=== PATIENT | female | born 1960 | race African-American/Black ===

== ENCOUNTER 2017-03-24 10:52 | Emergency (ER) | payer MEDICAID ==
[~2017-03-24] VITALS: Ht 152.4 cm; Wt 76.0 kg
[~2017-03-24 10:52] MED LIST: ASPI-1035 PO; BENA20TA3 PO; METF500T4 PO; TRIA1CAP6 PO
[2017-03-24 11:20] VITALS: BP 151/97
[2017-03-24] MEDS ORDERED: IBUPROFEN 600MG TABLET PO ONE (13:00)
== END 2017-03-24 15:16 | disposition home or self-care (01) ==
LOC: ER 13:05
DX: S40.012A Contusion of left shoulder, initial encounter (principal); S60.222A Contusion of left hand, initial encounter; S80.02XA Contusion of left knee, initial encounter; E11.9 Type 2 diabetes mellitus without complications; I10 Essential (primary) hypertension; V49.9XXA Car occupant (driver) (passenger) injured in unspecified traffic accident, initial encounter; Y93.89 Activity, other specified; Y92.89 Other specified places as the place of occurrence of the external cause; Y99.8 Other external cause status
CPT/HCPCS: 73030; 73130; 73562; 99284

== ENCOUNTER 2018-08-21 06:37 | Emergency (ER) | payer MEDICAID ==
[~2018-08-21] VITALS: Ht 157.5 cm; Wt 75.0 kg
[~2018-08-21 06:37] MED LIST changes: -ASPI-1035 PO; +ASPI-1159 PO; +BENA20TA10 PO; -BENA20TA3 PO; -METF500T4 PO; +METF500T6 PO
[2018-08-21] MEDS ORDERED: TRAMADOL 50MG TABLET PO ONE (08:00)
[2018-08-21 08:28] LABS: CLARITY URINE CLOUDY (CLEAR); COLOR URINE YELLOW (YELLOW); KETONES URINE NEGATIVE (NEGATIVE); LEUKOCYTE ESTERASE URINE 2+ (NEGATIVE); NITRITE URINE NEGATIVE (NEGATIVE); OCCULT BLOOD URINE NEGATIVE (NEGATIVE); PROTEIN URINE NEGATIVE (NEGATIVE); SPECIFIC GRAVITY URINE 1.028 (1.005-1.030); UROBILINOGEN URINE 0.2 E.U./dL (0.2-1.0)
[2018-08-21 08:52] LABS: BASOPHILS % 0.9 % (0.0-2.0); EOSINOPHILS % 1.1 % (0.0-5.0); HEMATOCRIT. 37.2 % (36.0-48.0); HEMOGLOBIN. 12.3 g/dL (12.0-16.0); LYMPHOCYTES % 35.8 % (20.0-50.0); MEAN CORPUSCULAR HEMOGLOBIN 29.6 pg (28.0-32.0); MEAN CORPUSCULAR VOLUME 89.6 fL (81.0-99.0); MEAN PLATELET VOLUME 8.3 fl (7.4-10.4); MONOCYTES % 8.7 % (2.0-8.0); NEUTROPHILS % 53.5 % (40.0-76.0); PLATELET 288 x1000/uL (130-400); RED BLOOD CELL COUNT 4.16 mill/uL (4.2-5.4); RED CELL DISTRIBUTION WIDTH 13.5 % (11.6-14.6)
[2018-08-21 08:59] LABS: CHLORIDE 105 mEq/L (98-107)
[2018-08-21] MEDS ORDERED: AMOXICILLIN/POTASSIUM CLAVULANATE 875/125MG TAB PO ONE (10:45)
[2018-08-21 11:19] VITALS: BP 162/86
== END 2018-08-21 11:28 | disposition home or self-care (01) ==
LOC: ER 06:37
DX: N12 Tubulo-interstitial nephritis, not specified as acute or chronic (principal); E11.9 Type 2 diabetes mellitus without complications; I10 Essential (primary) hypertension; Z98.890 Other specified postprocedural states; Z79.899 Other long term (current) drug therapy
CPT/HCPCS: 36415; 80048; 81003; 81025; 83690; 85025; 87086; 99284

== ENCOUNTER 2019-11-12 07:53 | Emergency (ER) | payer MEDICAID ==
[~2019-11-12] VITALS: Ht 160 cm; Wt 81.0 kg
[~2019-11-12 07:53] MED LIST changes: -ASPI-1159 PO; +ASPI-1393 PO; +METF-414 PO; -METF500T6 PO
[2019-11-12] MEDS ORDERED: ONDANSETRON HCL 4MG/2ML INJ IV STA (08:52)
[2019-11-12] MEDS ORDERED: SODIUM CHLORIDE 0.9% 1,000 ML IV ONE (08:52)
[2019-11-12] MEDS ORDERED: MORPHINE SULFATE 4 MG/ML CPJ (NOT FOR IM USE) IV STA (08:52)
[2019-11-12] MEDS ORDERED: KETOROLAC 30MG/ML VIAL IV STA (08:52)
[2019-11-12 08:55] LABS: CHLORIDE 107 mEq/L (98-107)
[2019-11-12 08:56] LABS: BASOPHILS % 0.7 % (0.0-2.0); EOSINOPHILS % 0.6 % (0.0-5.0); HEMATOCRIT. 38.9 % (36.0-48.0); HEMOGLOBIN. 12.9 g/dL (12.0-16.0); MEAN CORPUSCULAR HEMOGLOBIN 29.6 pg (28.0-32.0); MEAN CORPUSCULAR VOLUME 89.2 fL (81.0-99.0); MEAN PLATELET VOLUME 8.6 fl (7.4-10.4); NEUTROPHILS % 68.7 % (40.0-76.0); PLATELET 276 x1000/uL (130-400); RED BLOOD CELL COUNT 4.36 mill/uL (4.2-5.4); RED CELL DISTRIBUTION WIDTH 13.9 % (11.6-14.6)
[2019-11-12 08:57] LABS: PROTHROMBIN TIME 10.2 sec (9.6-11.0)
[2019-11-12 11:42] LABS: CLARITY URINE CLEAR (CLEAR); COLOR URINE YELLOW (YELLOW); KETONES URINE TRACE (NEGATIVE); LEUKOCYTE ESTERASE URINE 1+ (NEGATIVE); NITRITE URINE NEGATIVE (NEGATIVE); OCCULT BLOOD URINE NEGATIVE (NEGATIVE); PROTEIN URINE NEGATIVE (NEGATIVE)
[2019-11-12 12:13] VITALS: BP 151/78
== END 2019-11-12 13:15 | disposition home or self-care (01) ==
LOC: ER 08:02
DX: N39.0 Urinary tract infection, site not specified (principal); I10 Essential (primary) hypertension; E11.9 Type 2 diabetes mellitus without complications; Z79.82 Long term (current) use of aspirin; Z79.899 Other long term (current) drug therapy
CPT/HCPCS: 36415; 71045; 74176; 80053; 81003; 83690; 84484; 85025; 85610; 87086; 93005; 96374; 96375; 99284; J1885; J2270; J2405; J7030

== ENCOUNTER 2019-11-17 16:21 | Emergency (ER) | payer MEDICAID ==
[~2019-11-17] VITALS: Ht 157.5 cm; Wt 82.0 kg
[2019-11-17] MEDS ORDERED: KETOROLAC 15MG/ML VIAL IM ONE (22:15)
[2019-11-17] MEDS ORDERED: CYCLOBENZAPRINE 10MG TABLET PO ONE (22:15)
[2019-11-18 01:18] VITALS: BP 159/82
== END 2019-11-18 01:20 | disposition home or self-care (01) ==
LOC: ER 16:21
DX: S16.1XXA Strain of muscle, fascia and tendon at neck level, initial encounter (principal); M47.892 Other spondylosis, cervical region; I10 Essential (primary) hypertension; E11.9 Type 2 diabetes mellitus without complications; V43.62XA Car passenger injured in collision with other type car in traffic accident, initial encounter; Y93.89 Activity, other specified; Y92.488 Other paved roadways as the place of occurrence of the external cause; Z79.84 Long term (current) use of oral hypoglycemic drugs; Z79.82 Long term (current) use of aspirin; Z79.899 Other long term (current) drug therapy
CPT/HCPCS: 72125; 96372; 99284; J1885

== ENCOUNTER 2019-12-08 09:32 | Emergency (ER) | payer MEDICAID ==
[~2019-12-08] VITALS: Ht 157.5 cm; Wt 81.0 kg
[~2019-12-08 09:32] MED LIST changes: -ASPI-1393 PO; +ASPI-1497 PO
[2019-12-08] MEDS ORDERED: METHOCARBAMOL 500MG TABLET PO ONE (11:45)
[2019-12-08] MEDS ORDERED: KETOROLAC 60MG/2ML VIAL IM ONE (11:45)
[2019-12-08 12:15] VITALS: BP 168/83
== END 2019-12-08 12:45 | disposition home or self-care (01) ==
LOC: ER 09:32
DX: S16.1XXA Strain of muscle, fascia and tendon at neck level, initial encounter (principal); E11.9 Type 2 diabetes mellitus without complications; I10 Essential (primary) hypertension; Z98.890 Other specified postprocedural states; Z79.899 Other long term (current) drug therapy; V49.88XA Car occupant (driver) (passenger) injured in other specified transport accidents, initial encounter; Y93.89 Activity, other specified; Y92.89 Other specified places as the place of occurrence of the external cause; Y99.8 Other external cause status
CPT/HCPCS: 96372; 99283; J1885

== ENCOUNTER 2020-02-17 11:54 | Emergency (ER) | payer MEDICAID ==
[~2020-02-17] VITALS: Ht 157.5 cm; Wt 81.0 kg
[2020-02-17 12:03] VITALS: BP 107/75
[2020-02-17] MEDS ORDERED: ACETAMINOPHEN 325MG TABLET PO ONE (12:15)
== END 2020-02-17 12:19 | disposition home or self-care (01) ==
LOC: ER 11:54
DX: L02.412 Cutaneous abscess of left axilla (principal); E11.9 Type 2 diabetes mellitus without complications; I10 Essential (primary) hypertension; Z79.899 Other long term (current) drug therapy; Z79.84 Long term (current) use of oral hypoglycemic drugs
CPT/HCPCS: 99282; 99283

== ENCOUNTER 2022-11-22 08:01 | Emergency (ER) | payer MEDICAID ==
[~2022-11-22] VITALS: Ht 157.5 cm; Wt 74.0 kg
[~2022-11-22 08:01] MED LIST changes: +BENA-8 PO; -BENA20TA10 PO
[2022-11-22 08:05] VITALS: BP 130/79
[2022-11-22 09:57] LABS: CLARITY URINE CLOUDY (CLEAR); COLOR URINE YELLOW (YELLOW); KETONES URINE NEGATIVE (NEGATIVE); LEUKOCYTE ESTERASE URINE NEGATIVE (NEGATIVE); NITRITE URINE NEGATIVE (NEGATIVE); OCCULT BLOOD URINE NEGATIVE (NEGATIVE); PH URINE 7.5 (4.5-8.0); PROTEIN URINE NEGATIVE (NEGATIVE); SPECIFIC GRAVITY URINE 1.014 (1.005-1.030); UROBILINOGEN URINE 0.2 E.U./dL (0.2-1.0)
== END 2022-11-22 10:14 | disposition home or self-care (01) ==
LOC: ER 08:13
DX: N81.10 Cystocele, unspecified (principal); E11.9 Type 2 diabetes mellitus without complications; I10 Essential (primary) hypertension; Z79.899 Other long term (current) drug therapy
CPT/HCPCS: 81003; 99283; 99284